=== PATIENT | female | born 1990 | race Caucasian/White ===

== ENCOUNTER 2024-09-29 10:05 | Emergency (ER) | payer OTHER ==
[~2024-09-29] VITALS: Ht 162.6 cm; Wt 91.0 kg
[2024-09-29 10:05] VITALS: O2SAT 99
[2024-09-29 10:33] VITALS: BP 131/74; PULSE 92; RESP 18; TEMP 98.1; O2SAT 99
[2024-09-29] MEDS ORDERED: AMOX1TAB16 MT (11:20)
[2024-09-29] MEDS ORDERED: DOXY200T8 MT (11:20)
== END 2024-09-29 11:28 | disposition home or self-care (01) ==
LOC: ER 10:05
DX: S61.452A Open bite of left hand, initial encounter (principal); W55.01XA Bitten by cat, initial encounter; Y93.89 Activity, other specified; Y92.89 Other specified places as the place of occurrence of the external cause; Y99.8 Other external cause status
CPT/HCPCS: 99283